=== PATIENT | male | born 1955 | race Caucasian/White ===

== ENCOUNTER → 2016-07-12 | Outpatient (CLI) | payer OTHER ==
[~2016-07-12] MED LIST: ACET-1138 PO; ASPI1CHW12 PO; CHOL100010 PO; JUICE PLUS PO; LPT40 PO; MAGN400T6 PO; MULT-506 PO; NTRS PO; OMEG10007 PO; OXYSR10 PO; POTA99TA PO; RXC5 PO; VITACAP26 PO; [UNRECOGNIZED DRUG - CODE] PO
[2016-07-12 10:24] LABS: BASO ABS # 0.06 K/uL (0-0.2); COMPLETE YES; EOS % 1.9 %; HEMATOCRIT 43.6 % (42-52); IG% 0.2 %; LYMPH % 34.2 %; LYMPH ABS # 2.12 K/uL (1.2-3.4); MEAN CELL VOLUME 82.9 fL (80-100); MEAN CORPUSCULAR HEMOGLOBIN 27.8 pg (25-34); MEAN CORPUSCULAR HGB CONC 33.5 g/dl (32-36); NEUT % 56.7 %; PLATELET COUNT 263 K/uL (130-400); RED BLOOD COUNT 5.26 M/uL (4.7-6.1)
[2016-07-12 10:35] LABS: ALT/SGPT 15 U/L (12-78); AST/SGOT 16 U/L (15-37); BLOOD UREA NITROGEN 29 mg/dl (7-18); BUN/CREATININE RATIO 23.9 (10-20); CALCIUM 9.2 mg/dl (8.5-10.1); CARBON DIOXIDE 25 mmol/L (21-32); CHLORIDE 105 mmol/L (98-107); CHOLESTEROL 147 mg/dl (0-200); GLUCOSE 94 mg/dl (70-99); POTASSIUM 4.4 mmol/L (3.5-5.1); SODIUM 138 mmol/L (136-145)
[2016-07-12 10:38] LABS: CHOLESTEROL/HDL RATIO 2.7; HDL CHOLESTEROL 54 mg/dl; LDL CHOLESTEROL CALCULATED 76 mg/dl; TRIGLYCERIDES 84 mg/dl (0-150); VERY LOW DENSITY LIPOPROT CALC 17 mg/dl
== END | disposition home or self-care (01) ==
LOC: C.LAB 09:23
DX: D64.9 Anemia, unspecified (principal); E78.5 Hyperlipidemia, unspecified

== ENCOUNTER → 2016-08-31 | Outpatient (CLI) | payer OTHER | END | disposition home or self-care (01) | LOC: C.LABSPEC 11:00 | DX: J02.9 Acute pharyngitis, unspecified (principal) ==

== ENCOUNTER 2016-10-16 11:21 | Emergency (ER) | payer OTHER ==
[~2016-10-16] VITALS: Ht 170.2 cm; Wt 90.6 kg
[~2016-10-16 11:21] MED LIST changes: -NTRS PO
[2016-10-16 11:23] VITALS: TEMP 36.7; Ht 170.2 cm; Wt 90.6 kg
[2016-10-16 11:38] VITALS: O2SAT 96
[2016-10-16] MEDS ORDERED: LIDOCAINE/EPINEPHRINE 1% 20 ML VIAL INFIL ONE (11:45)
[2016-10-16] MEDS ORDERED: DIPHTHERIA/TETANUS/PERTUSSIS 0.5 ML SYR/VIAL IM. ONE (11:45)
[2016-10-16] MEDS ORDERED: NTRS PO (11:57)
--- NOTE | 2016-10-16 12:05 | DIAGNOSTIC IMAGING REPORT ---
SINGLE VIEW CHEST CLINICAL HISTORY: Fall. FINDINGS: An AP, portable, upright chest radiograph is compared to study dated 10/17/2015. The examination is degraded by portable technique and patient rotation. The heart is enlarged. The pulmonary vasculature is noncongested. The lungs and pleural spaces are clear. No pneumothorax is seen. The bony thorax is grossly intact. Bilateral shoulder arthroplasties are in place. IMPRESSION: Cardiomegaly with no active disease in the chest. Electronically signed by: Kai Epperson M.D. 10/16/2016 12:04 PM Dictated Date/Time: 10/16/2016 12:03 PM
[2016-10-16 12:15] LABS: BASO % 1.2 %; BASO ABS # 0.08 K/uL (0-0.2); COMPLETE YES; EOS % 5.4 %; HEMATOCRIT 43.1 % (42-52); IG% 0.6 %; LYMPH % 24.3 %; LYMPH ABS # 1.61 K/uL (1.2-3.4); MEAN CORPUSCULAR HEMOGLOBIN 28.4 pg (25-34); MEAN CORPUSCULAR HGB CONC 33.4 g/dl (32-36); MEAN PLATELET VOLUME 9.3 fL (7.4-10.4); MONO % 9.5 %; PLATELET COUNT 255 K/uL (130-400); RED BLOOD COUNT 5.07 M/uL (4.7-6.1); WHITE BLOOD COUNT 6.63 K/uL (4.8-10.8)
[2016-10-16 12:25] LABS: PARTIAL THROMBOPLASTIN RATIO 1.1; PROTHROMBIN TIME (PATIENT) 10.7 SECONDS (9.0-12.0)
[2016-10-16 12:32] LABS: ALT/SGPT 18 U/L (12-78); BLOOD UREA NITROGEN 22 mg/dl (7-18); BUN/CREATININE RATIO 16.7 (10-20); CALCIUM 9.3 mg/dl (8.5-10.1); CARBON DIOXIDE 26 mmol/L (21-32); CHLORIDE 108 mmol/L (98-107); GLUCOSE 80 mg/dl (70-99); POTASSIUM 4.2 mmol/L (3.5-5.1); SODIUM 140 mmol/L (136-145)
[2016-10-16 12:37] LABS: ALKALINE PHOSPHATASE 60 U/L (45-117); AST/SGOT 23 U/L (15-37)
--- NOTE | 2016-10-16 12:42 | DIAGNOSTIC IMAGING REPORT ---
CT SCAN OF THE CERVICAL SPINE CLINICAL HISTORY: Trauma. Fall from ladder. COMPARISON STUDY: No priors. TECHNIQUE: CT scan of the cervical spine is performed from the skull base to the upper thoracic spine. Images are reviewed in the axial, sagittal, and coronal planes. IV contrast was not administered for this examination. CT DOSE: 1214.88 mGy.cm FINDINGS: Skeletal structures: The skeletal structures are well mineralized. There is no evidence of fracture or subluxation involving the cervical spine. Vertebral body height and alignment are maintained. The odontoid process and lateral masses are intact. The atlantoaxial articulation is preserved noting productive degenerative change. The spinous processes appear intact. Small anterior osteophytes are seen in the mid to lower cervical spine. There is mild multilevel cervical spondylosis. Uncovertebral and facet arthropathy are seen at several levels, greatest in lower cervical region where they contribute to neural foraminal stenosis. Intervertebral discs: Moderate disc space narrowing is seen at C5-C6 and C6-C7. The remaining disc spaces appear maintained. Central canal: Small posterior disc osteophyte complexes at C5-C6 and C6-C7 may contribute to mild acquired compromise of the central canal. Soft tissues: The prevertebral and paraspinous soft tissues are within normal limits. Calvarium: The visualized calvarium at the skull base appears intact. Brain parenchyma: Partially visualized brain parenchyma the skull base is within normal limits. Sinuses and mastoids: The visualized paranasal sinuses are clear. The mastoid air cells are well pneumatized. Lung apices: Clear as visualized. IMPRESSION: There is no evidence of fracture or subluxation involving the cervical spine. Electronically signed by: Kai Epperson M.D. 10/16/2016 12:40 PM Dictated Date/Time: 10/16/2016 12:36 PM
--- NOTE | 2016-10-16 12:45 | DIAGNOSTIC IMAGING REPORT ---
CT SCAN OF THE BRAIN WITHOUT IV CONTRAST CLINICAL HISTORY: Trauma. Fall from ladder. COMPARISON STUDY: CT of the brain dated 10/17/2015. TECHNIQUE: Unenhanced axial CT scan of the brain is performed from the vertex to the skull base. Automated dose control exposure was utilized. CT DOSE: Reported separately under the concurrently performed CT scan of the cervical spine. FINDINGS: Brain parenchyma: The brain parenchyma is normal in appearance. There is no hemorrhage, mass effect, or evidence of acute territorial ischemia by CT criteria. Yousif-white matter is preserved. No extra-axial fluid collection is seen. Ventricles, sulci, cisterns: Normal in configuration. Intracranial vasculature: There is mild atherosclerotic calcification of the cavernous carotid and vertebral arteries. Calvarium: There is no depressed calvarial fracture. Sinuses and mastoids: A small retention cyst is partially visualized in the right maxillary antrum. The remaining visualized paranasal sinuses are clear. The mastoid air cells are well pneumatized. Orbits: The bony orbits are grossly intact. IMPRESSION: No acute intracranial abnormality. Electronically signed by: Kai Epperson M.D. 10/16/2016 12:44 PM Dictated Date/Time: 10/16/2016 12:41 PM
--- NOTE | 2016-10-16 13:07 | EMERGENCY ROOM VISIT NOTE ---
History Report prepared by Fei: Nathalie Hernandez Under the Supervision of: Dr. Omid Martin D.O. First contact with patient: 11:32 Chief Complaint: FALL Stated Complaint: FELL OFF LADDER,HIT HEAD, NO SHORT TERM MEMORY History of Present Illness The patient is a 61 year old male who presents to the Emergency Room with complaints of a fall 30 minutes ago. The patient was on a 6 foot step ladder trimming trees. The fall was witnessed by his . He backwards onto soft ground. He did not seem to hit his head hard. He was holding a saw which cut his lip. 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 She is concerned because he was using the ladder in an unsafe manner which is very unusual for him. He seemed confused and was not making sense after the fall. He seemed to have some memory issues and took some time to recall who the current president is. He has some neck pain and ringing in his head. He denies any headache, chest pain, abdominal pain , arm pain, or back pain. He is able to ambulate. His teeth are lining up. He denies any alcohol use. He is unsure of his tetanus status. Source of History: patient, spouse/significant other Onset: 30 minutes ago Position: other (global) Quality: other (fall) Timing: other (episodic) Associated Symptoms: + neck pain, No headache, No chest pain, No abdominal pain, No back pain Note: Pt had confusion, memory problem, head ringing. Pt denies arm pain. Review of Systems See HPI for pertinent positives & negatives. A total of 10 systems reviewed and were otherwise negative. Past Medical & Surgical Medical Problems: (1) DJD of shoulder Surgical Problems: (1) History of mitral valve repair Family History Cancer Heart disease Social History Smoking Status: Former Smoker Alcohol Use: none Drug Use: none Marital Status: Housing Status: lives with family Occupation Status: retired Current/Historical Medications Scheduled Aspirin (Aspirin 81 Low Dose), 1 TAB PO QAM Atorvastatin (Atorvastatin Calcium), 1 TAB PO HS Cholecalciferol (Vitamin D), 2,000 PO QAM Coenzyme Q10 (Ubidecarenone) (Co-Enzyme Q-10), 200 MG PO QAM Enteral Nutrition Formula (Nutritional Supplement), 6 CAP PO DAILY Fish Oil ([place]-3), 1 CAP PO QAM Magnesium Oxide (Mag-Ox), 400 MG PO QAM Multivitamin (Multivitamin), 1 TAB PO QAM Potassium (Potassium), 2 TAB PO QAM Vitamins C & E (Vitamin C), 1 CAP PO QAM Allergies Coded Allergies: No Known Allergies (Unverified , 10/16/16) Physical Exam Vital Signs Date Time Temp Pulse Resp B/P (MAP) Pulse Ox O2 Delivery O2 Flow Rate FiO2 10/16/16 14:52 67 18 103/68 97 Room Air 10/16/16 13:15 66 16 116/77 97 10/16/16 11:38 96 Room Air 10/16/16 11:23 36.7 85 16 124/79 96 Room Air Physical Exam GENERAL: Patient is awake, alert, somewhat anxious but comfortable appearing. EYES: The conjunctivae are clear. The pupils are round and reactive. EARS, NOSE, MOUTH AND THROAT: The nose is without any evidence of any deformity. Mucous membranes are moist tongue is midline. Regular laceration to the chin which did not appear to be through and through. NECK: Cervical collar placed on arrival, no tenderness noted on palpation. RESPIRATORY: Normal respiratory effort is noted there is no evidence of wheezing rhonchi or rales CARDIOVASCULAR: Regular rate and rhythm noted there no murmurs rubs or gallops normal S1 normal S2 GASTROINTESTINAL: The abdomen is soft. Bowel sounds are present in all quadrants. Abdomen is nontender BACK: No midline tenderness or or step-off noted range of motion in flexion extension as well as rotation no signs of muscle spasm noted MUSCULOSKELETAL/EXTREMITIES: There is no evidence of gross deformity full range of motion is noted in the hips and shoulders SKIN: There is no obvious evidence of any rash. There are no petechiae, pallor or cyanosis noted. NEUROLOGIC: Patient is awake alert and oriented x3 strength is symmetric patellar reflexes are 2+ bilaterally Medical Decision & Procedures ER Provider Diagnostic Interpretation: X-ray results as stated below per interpretation by me and the radiologist. Radiology results as stated below per my review and radiologist interpretation: SINGLE VIEW CHEST CLINICAL HISTORY: Fall. FINDINGS: An AP, portable, upright chest radiograph is compared to study dated 10/17/2015. The examination is degraded by portable technique and patient rotation. The heart is enlarged. The pulmonary vasculature is noncongested. The lungs and pleural spaces are clear. No pneumothorax is seen. The bony thorax is grossly intact. Bilateral shoulder arthroplasties are in place. IMPRESSION: Cardiomegaly with no active disease in the chest. Electronically signed by: Kai Epperson M.D. 10/16/2016 12:04 PM Dictated Date/Time: 10/16/2016 12:[address] SCAN OF THE CERVICAL SPINE CLINICAL HISTORY: Trauma. Fall from ladder. COMPARISON STUDY: No priors. TECHNIQUE: CT scan of the cervical spine is performed from the skull base to the upper thoracic spine. Images are reviewed in the axial, sagittal, and coronal planes. IV contrast was not administered for this examination. CT DOSE: 1214.88 mGy.cm FINDINGS: Skeletal structures: The skeletal structures are well mineralized. There is no evidence of fracture or subluxation involving the cervical spine. Vertebral body height and alignment are maintained. The odontoid process and lateral masses are intact. The atlantoaxial articulation is preserved noting productive degenerative change. The spinous processes appear intact. Small anterior osteophytes are seen in the mid to lower cervical spine. There is mild multilevel cervical spondylosis. Uncovertebral and facet arthropathy are seen at several levels, greatest in lower cervical region where they contribute to neural foraminal stenosis. Intervertebral discs: Moderate disc space narrowing is seen at C5-C6 and C6-C7. The remaining disc spaces appear maintained. Central canal: Small posterior disc osteophyte complexes at C5-C6 and C6-C7 may contribute to mild acquired compromise of the central canal. Soft tissues: The prevertebral and paraspinous soft tissues are within normal limits. Calvarium: The visualized calvarium at the skull base appears intact. Brain parenchyma: Partially visualized brain parenchyma the skull base is within normal limits. Sinuses and mastoids: The visualized paranasal sinuses are clear. The mastoid air cells are well pneumatized. Lung apices: Clear as visualized. IMPRESSION: There is no evidence of fracture or subluxation involving the cervical spine. Electronically signed by: Kai Epperson M.D. 10/16/2016 12:40 PM Dictated Date/Time: 10/16/2016 12:[address] SCAN OF THE BRAIN WITHOUT IV CONTRAST CLINICAL HISTORY: Trauma. Fall from ladder. COMPARISON STUDY: CT of the brain dated 10/17/2015. TECHNIQUE: Unenhanced axial CT scan of the brain is performed from the vertex to the skull base. Automated dose control exposure was utilized. CT DOSE: Reported separately under the concurrently performed CT scan of the cervical spine. FINDINGS: Brain parenchyma: The brain parenchyma is normal in appearance. There is no hemorrhage, mass effect, or evidence of acute territorial ischemia by CT criteria. Yousif-white matter is preserved. No extra-axial fluid collection is seen. Ventricles, sulci, cisterns: Normal in configuration. Intracranial vasculature: There is mild atherosclerotic calcification of the cavernous carotid and vertebral arteries. Calvarium: There is no depressed calvarial fracture. Sinuses and mastoids: A small retention cyst is partially visualized in the right maxillary antrum. The remaining visualized paranasal sinuses are clear. The mastoid air cells are well pneumatized. Orbits: The bony orbits are grossly intact. IMPRESSION: No acute intracranial abnormality. Electronically signed by: Kai Epperson M.D. 10/16/2016 12:44 PM Dictated Date/Time: 10/16/2016 12:41 PM Laboratory Results 10/16/16 11:55 Red Blood Count 5.07, Mean Corpuscular Volume 85.0, Mean Corpuscular Hemoglobin 28.4, Mean Corpuscular Hemoglobin Concent 33.4, Mean Platelet Volume 9.3, Neutrophils (%) (Auto) 59.0, Lymphocytes (%) (Auto) 24.3, Monocytes (%) (Auto) 9.5, Eosinophils (%) (Auto) 5.4, Basophils (%) (Auto) 1.2, Neutrophils # (Auto) 3.91, Lymphocytes # (Auto) 1.61, Monocytes # (Auto) 0.63, Eosinophils # (Auto) 0.36, Basophils # (Auto) 0.08 10/16/16 11:55 Test 10/16/16 11:55 10/16/16 13:15 White Blood Count 6.63 K/uL (4.8-10.8) Red Blood Count 5.07 M/uL (4.7-6.1) Hemoglobin 14.4 g/dL (14.0-18.0) Hematocrit 43.1 % (42-52) Mean Corpuscular Volume 85.0 fL (80-100) Mean Corpuscular Hemoglobin 28.4 pg (25-34) Mean Corpuscular Hemoglobin Concent 33.4 g/dl (32-36) Platelet Count 255 K/uL (130-400) Mean Platelet Volume 9.3 fL (7.4-10.4) Neutrophils (%) (Auto) 59.0 % Lymphocytes (%) (Auto) 24.3 % Monocytes (%) (Auto) 9.5 % Eosinophils (%) (Auto) 5.4 % Basophils (%) (Auto) 1.2 % Neutrophils # (Auto) 3.91 K/uL (1.4-6.5) Lymphocytes # (Auto) 1.61 K/uL (1.2-3.4) Monocytes # (Auto) 0.63 K/uL (0.11-0.59) Eosinophils # (Auto) 0.36 K/uL (0-0.5) Basophils # (Auto) 0.08 K/uL (0-0.2) RDW Standard Deviation 45.3 fL (36.4-46.3) RDW Coefficient of Variation 14.5 % (11.5-14.5) Immature Granulocyte % (Auto) 0.6 % Immature Granulocyte # (Auto) 0.04 K/uL (0.00-0.02) Prothrombin Time 10.7 SECONDS (9.0-12.0) Prothromb Time International Ratio 1.0 (0.9-1.1) Activated Partial Thromboplast Time 29.5 SECONDS (21.0-31.0) Partial Thromboplastin Ratio 1.1 Anion Gap 6.0 mmol/L (3-11) Est Creatinine Clear Calc Drug Dose 64.1 ml/min Estimated GFR () 68.3 Estimated GFR (Non- 58.9 BUN/Creatinine Ratio 16.7 (10-20) Calcium Level 9.3 mg/dl (8.5-10.1) Total Bilirubin 0.7 mg/dl (0.2-1) Direct Bilirubin 0.2 mg/dl (0-0.2) Aspartate Amino Transf (AST/SGOT) 23 U/L (15-37) Alanine Aminotransferase (ALT/SGPT) 18 U/L (12-78) Alkaline Phosphatase 60 U/L (45-117) Troponin I < 0.015 ng/ml (0-0.045) Total Protein 7.4 gm/dl (6.4-8.2) Albumin 4.0 gm/dl (3.4-5.0) Lipase 172 U/L (73-393) Urine Color YELLOW Urine Appearance CLEAR (CLEAR) Urine pH 6.0 (4.5-7.5) Urine Specific [place] 1.022 (1.000-1.030) Urine Protein NEG (NEG) Urine Glucose (UA) NEG (NEG) Urine Ketones NEG (NEG) Urine Occult Blood TRACE (NEG) Urine Nitrite NEG (NEG) Urine Bilirubin NEG (NEG) Urine Urobilinogen NEG (NEG) Urine Leukocyte Esterase NEG (NEG) Urine WBC (Auto) 1-5 /hpf (0-5) Urine RBC (Auto) 0-4 /hpf (0-4) Urine Hyaline Casts (Auto) 1-5 /lpf (0-5) Urine Epithelial Cells (Auto) 5-10 /lpf (0-5) Urine Bacteria (Auto) NEG (NEG) Laboratory results per my review. Medications Administered Medications (Trade) Dose Ordered Sig/Jaun Route Start Time Stop Time Status Last Admin Dose Admin Diphtheria/ Pertussis/Tetanus Vacc (Adacel Inj) 0.5 ml ONCE ONCE IM. 10/16/16 11:45 10/16/16 11:46 DC 10/16/16 12:54 0.5 ML ECG Indication: other (fall) Rate (beats per minute): 81 Rhythm: normal sinus Findings: no ectopy, other (no acute ST segment abnormality) Comparison ECG Date: 17-Oct-2015 Change: no significant change ED Course 1133: The patient was evaluated in room B9. A complete history and physical examination were performed. 1145: Lidocaine/Epinephrine 20 ml INFIL, Adacel Inj 0.5 ml IM. 1310: Upon reevaluation, the patient is feeling better. I discussed the results and treatment plan with him and his . They verbalized agreement of the treatment plan. He was discharged home. Medical Decision Prior records/ancillary studies reviewed. Triage Nursing notes reviewed. Additional history obtained from family. The patient's history was concerning for traumatic injury Differential diagnosis: Etiologies such as fracture, dislocation, intra-abdominal, pneumothorax, intrathoracic , intracranial, neurologic, as well as other traumatic pathologies were entertained. Medication Reconciliation: I attest that I have personally reviewed the patient' s current medications list. Blood pressure screening: Patient was found to have normal blood pressure on screening and does not require follow-up. The patient is a 61-year-old male who presented to the emergency department for an evaluation after fall. The patient presented to the emergency department with his significant other who states that he had very significant fall and appears to be amnestic of the event. On my evaluation the patient appears to have a significant concussion clinically. He had no meningismus or focal neurologic deficits. He does complain of headache but it is very mild and he does not wish to have any medication for pain. The patient was treated with tetanus shot. He had a large laceration lower chin which was repaired by both or PAC. Please see her note for procedure details. I discussed the patient's laboratory and radiographic studies with him. He was given concussion discharge instructions as well as laceration discharge instructions. He was encouraged to follow-up with his family doctor this week for reevaluation. He was also encouraged to follow-up for suture removal in 5-7 days. Return to emergency department immediately if symptoms change worsen or the need arises. Impression Primary Impression: Fall Additional Impressions: Concussion Head injury Facial laceration Cervical strain Scribe Attestation The scribe's documentation has been prepared under my direction and personally reviewed by me in its entirety. I confirm that the note above accurately reflects all work, treatment, procedures, and medical decision making performed by me. Departure Information Dispostion Home / Self-Care Referrals Beto Chavez Jr,D.O. (PCP) Forms HOME CARE DOCUMENTATION FORM, IMPORTANT VISIT INFORMATION Patient Instructions Concussion, ED Laceration Facial Skin Glue, [facility] Additional Instructions Call your family to schedule a follow-up appointment. Rest and avoid any strenuous activity. Return to the emergency apartment immediately if any signs of head injury develop such as severe headache seizure or if the need arises. Have the sutures removed in 5-6 days with your family doctor. Problem Qualifiers Primary Impression: Fall Encounter type: initial encounter Qualified Codes: W19.XXXA - Unspecified fall, initial encounter Additional Impressions: Concussion Encounter type: initial encounter Loss of consciousness presence/duration: without LOC Qualified Codes: S06.0X0A - Concussion without loss of consciousness, initial encounter Head injury Encounter type: initial encounter Qualified Codes: S09.90XA - Unspecified injury of head, initial encounter Facial laceration Encounter type: initial encounter Qualified Codes: S01.81XA - Laceration without foreign body of other part of head, initial encounter Cervical strain Encounter type: initial encounter Qualified Codes: S16.1XXA - Strain of muscle, fascia and tendon at neck level, initial encounter
[2016-10-16 13:36] LABS: URINE APPEARANCE CLEAR (CLEAR); URINE BILIRUBIN NEG (NEG); URINE COLOR YELLOW; URINE NITRITE NEG (NEG); URINE SPECIFIC GRAVITY 1.022 (1.000-1.030); UROBILINOGEN NEG (NEG)
[2016-10-16 13:41] LABS: MANUAL MICROSCOPIC REQUIRED? NO; REVIEW REQ? NO
--- NOTE | 2016-10-16 13:49 | EMERGENCY ROOM VISIT NOTE ---
ED Visit Note I was asked by Dr. Martin to perform a laceration repair to the patient's face. The laceration is approximately 5 cm in length. Using sterile technique the wound was cleaned with Betadine. The area was sterilely draped. 4 ml of 1% buffered lidocaine with epinephrine was used to anesthetize the skin. Once the patient was numb, the wound was copiously irrigated under pressure with sterile saline. The wound was explored and there were no deep structures such as tendons, bone, or ligaments present. The laceration was repaired using 8 simple interrupted 8-0 nylon sutures with the wound edges being well approximated. The patient tolerated the procedure well. The bleeding stopped.
[2016-10-16 14:52] VITALS: BP 103/68; PULSE 67; O2SAT 97
== END 2016-10-16 14:56 | disposition home or self-care (01) ==
LOC: C.EDB 11:22
DX: S06.0X0A Concussion without loss of consciousness, initial encounter (principal); W11.XXXA Fall on and from ladder, initial encounter; S09.90XA Unspecified injury of head, initial encounter; S01.81XA Laceration without foreign body of other part of head, initial encounter; S16.1XXA Strain of muscle, fascia and tendon at neck level, initial encounter; Z82.49 Family history of ischemic heart disease and other diseases of the circulatory system; Z87.891 Personal history of nicotine dependence; Z79.82 Long term (current) use of aspirin; Z23 Encounter for immunization

== ENCOUNTER 2016-10-21 12:12 | Emergency (ER) | payer OTHER ==
[~2016-10-21] VITALS: Ht 170.2 cm; Wt 91.9 kg
[~2016-10-21 12:12] MED LIST changes: -ACET-1138 PO; -JUICE PLUS PO; +NTRS PO; -OXYSR10 PO; -RXC5 PO
[2016-10-21 12:19] VITALS: BP 114/77; PULSE 71; TEMP 36.9; O2SAT 98; Ht 170.2 cm; Wt 91.9 kg
--- NOTE | 2016-10-21 16:56 | EMERGENCY ROOM VISIT NOTE ---
ED Visit Note First contact with patient: 12:29 CHIEF COMPLAINT: Suture removal This patient returns to the ED today for removal of sutures that were placed 5 days ago. There has been no swelling, redness, or drainage from the wound. The patient feels like the laceration is healing well. REVIEW OF SYSTEMS: Head: No headache, injury or neck pain. Skin: No rash, new lesions, or masses. General: No fever or chills, fatigue, loss of appetite , or significant recent weight gain or loss. PMH: Reviewed and unchanged from prior visit. SOCIAL HISTORY: Patient lives at home. PHYSICAL EXAM: Vital Signs: Reviewed Nurse's notes. There is a sutured wound on the chin with no signs of infection. There is no erythema, swelling, or tenderness. EMERGENCY DEPARTMENT COURSE: The sutures were removed without any difficulty and there was no separation of the wound edges. DIAGNOSIS: Healing laceration and suture removal DISCHARGE INSTRUCTIONS AND TREATMENT: Wash any remaining crusts off of the wound today and resume your normal activities. Current/Historical Medications Scheduled Aspirin (Aspirin 81 Low Dose), 1 TAB PO QAM Atorvastatin (Atorvastatin Calcium), 1 TAB PO HS Cholecalciferol (Vitamin D), 2,000 PO QAM Coenzyme Q10 (Ubidecarenone) (Co-Enzyme Q-10), 200 MG PO QAM Enteral Nutrition Formula (Nutritional Supplement), 6 CAP PO DAILY Fish Oil ([place]-3), 1 CAP PO QAM Magnesium Oxide (Mag-Ox), 400 MG PO QAM Multivitamin (Multivitamin), 1 TAB PO QAM Potassium (Potassium), 2 TAB PO QAM Vitamins C & E (Vitamin C), 1 CAP PO QAM Allergies Coded Allergies: No Known Allergies (Unverified , 10/21/16) Vital Signs Date Time Temp Pulse Resp B/P (MAP) Pulse Ox O2 Delivery O2 Flow Rate FiO2 10/21/16 12:19 36.9 71 16 114/77 98 Room Air Departure Information Impression Primary Impression: Encounter for removal of sutures Dispostion Home / Self-Care Condition GOOD Referrals Beto Chavez Jr,D.O. (PCP) Forms HOME CARE DOCUMENTATION FORM, IMPORTANT VISIT INFORMATION Patient Instructions [facility]
== END 2016-10-21 12:52 | disposition home or self-care (01) ==
LOC: C.EDB 12:15 → C.EDD 12:52
DX: S01.81XD Laceration without foreign body of other part of head, subsequent encounter (principal); X58.XXXD Exposure to other specified factors, subsequent encounter; Z79.82 Long term (current) use of aspirin; Z79.899 Other long term (current) drug therapy

== ENCOUNTER → 2017-01-14 | Outpatient (CLI) | payer OTHER ==
[2017-01-14 12:49] LABS: ALT/SGPT 19 U/L (12-78); AST/SGOT 19 U/L (15-37)
== END | disposition home or self-care (01) ==
LOC: C.LAB 10:40
DX: E78.5 Hyperlipidemia, unspecified (principal)

== ENCOUNTER → 2017-02-27 | Outpatient (CLI) | payer OTHER ==
[2017-02-27 12:48] LABS: FERRITIN 57.1 ng/ml (8.0-388.0)
== END | disposition home or self-care (01) ==
LOC: C.LAB 10:33
DX: E61.1 Iron deficiency (principal); M19.90 Unspecified osteoarthritis, unspecified site; I42.9 Cardiomyopathy, unspecified

== ENCOUNTER 2017-03-21 05:18 | Inpatient (IN) | payer OTHER ==
--- NOTE | 2017-02-27 08:45 | History and Physical ---
History & Physical Date Feb 27, 2017. Chief Complaint Right Knee Pain History of Present Illness 1. right knee pain Mr Tovar is a 61 year old male who is here for a follow up of right knee pain and pre op evaluation prior to right TKA. He presents with pain on the right side. He states that the symptoms have been chronic non-traumatic. Patient is here today requesting a right knee cortisone injection. The symptoms occur intermittently. The problem is fluctuating. Currently the patient states that the symptoms are moderate-severe. The pain is described as aching, discomforting and throbbing. The symptoms occur intermittently. The symptoms are aggravated by ascending stairs, descending stairs, daily activities, driving , first steps while awake, kneeling, movement, repetitive activities, sleeping on the affected side, squatting and walking. Davey states that the symptoms are relieved by no specific activity. In addition to right knee pain the patient is also experiencing decreased mobility, difficulty bending, difficulty going to sleep, limping, nighttime awakening, pain, stiffness, tenderness and weakness. Pertinent negatives include chills and fever. The patient has had a previous x-ray and MRI. He has been treated with a corticosteroid injection on the right side. Patient has had previous therapy. He attended physical therapy. Past Medical/Surgical History Medical Problems: (1) DJD of shoulder High Cholesterol Surgical Problems: History of mitral valve repair @ [facility] history of right TSA history of Left TSA history of left TKA Allergies Coded Allergies: No Known Allergies (Unverified , 10/21/16) Home Medications Scheduled Aspirin (Aspirin 81 Low Dose), 1 TAB PO QAM Atorvastatin (Atorvastatin Calcium), 1 TAB PO HS Cholecalciferol (Vitamin D), 2,000 PO QAM Coenzyme Q10 (Ubidecarenone) (Co-Enzyme Q-10), 200 MG PO QAM Enteral Nutrition Formula (Nutritional Supplement), 6 CAP PO DAILY Fish Oil ([place]-3), 1 CAP PO QAM Magnesium Oxide (Mag-Ox), 400 MG PO QAM Multivitamin (Multivitamin), 1 TAB PO QAM Potassium (Potassium), 2 TAB PO QAM Vitamins C & E (Vitamin C), 1 CAP PO QAM Physical Examination Skin: warm/dry, no rash Eyes: normal inspection, EOMI, sclerae normal ENT: normal ENT inspection, pharynx normal Head: normocephalic, atraumatic Neck: supple, no adenopathy, trachea midline Respiratory/Chest: lungs clear, normal breath sounds, no respiratory distress Cardiovascular: regular rate, rhythm, no edema, no murmur Abdomen / GI: normal bowel sounds, non tender Back: normal inspection Addiitonal Comments: Right Knee Physical Exam Exam Findings Details Knee ROM L * Active ROM - Flexion: 135 degrees, Extension: 0 degrees, Factors: normal, Description: active pain free range of motion. Passive ROM - Flexion: 135 degrees, Extension: 0 degrees, Factors: normal, Description: passive pain free range of motion. Knee ROM R * Active ROM - Flexion: 120 degrees, Extension: 3 degrees, Factors: pain, Description: active painful range of motion. Passive ROM - Flexion: 120 degrees, Extension: 3 degrees, Factors: pain, Description: passive painful range of motion. Strength LE Normal Strength Description - Hip: Right: strength is normal. Knee: Right: strength is normal. Ankle/Foot: Right: strength is normal. Knee * Inspection - Gait: limp. Alignment - Right: varus, Left: neutral. Ecchymosis - Right: negative, Left: negative. Effusion - Right: mild, Left: normal. Swelling - Right: mild, Left: none. Flexibility - Right: normal, Left: normal. Maximum tenderness - Right: medial joint line, lateral joint line, patella, Left: normal. Patella exam - Crepitation - Right: mild, Left: normal. Patella position - Right: neutral, Left: neutral. Tilt - Right: equal, Left: normal. [facility] - lateral - Right: Positive. Travis's - medial - Right: Positive. Knee Comments No calf tenderness Knee Normal Inspection - Atrophy - Right: Absent, Left: Absent. Skin - Right: Normal, Left: Normal. Patella exam - Apprehension - Right: Negative, Left: Negative. Q-angle - Right: Normal, Left: Normal. Orestes's - Right: Negative, Left: Negative. [facility] - lateral - Left: Negative. Travis's - medial - Left: Negative. Posterior drawer - Right: Negative, Left: Negative. Anterior drawer - Right: Negative, Left: Negative. Valgus stress - Right: Negative, Left : Negative. Varus stress - Right: Negative, Left: Negative. Extensor lag - Right : Normal. Neurovascular LE Normal Neurovascular examination including reflexes, sensation , and pulses is within normal limits. right knee x-rays: Xrays reviewed of the right knee showing findings consistent with degenerative joint disease including joint space narrowing, subchondral sclerosis and peripheral osteophyte formation. no acute bony pathology, overall varus alignment. Impression: degenerative joint disease of the right knee with no acute bony pathology noted. Diagnosis Right Knee DJD Further care discussed with patient and at this point in time has failed conservative measures and would like to proceed with a right total knee replacement. Plan on discharge will be home with outpatient physical therapy. DVT prophalaxis with TEDs, SCDs and will also place on aspirin 81 mg p.o. b.i.d. for a month postop. Patient will have follow up appointment in our office two weeks post op for staple/suture removal and re-evaluation. Patient otherwise has no other questions or concerns.
[2017-02-27 10:36] VITALS: Ht 170.2 cm; Wt 94.2 kg
--- NOTE | 2017-02-27 11:12 | PAT Medication Instructions ---
Service Date Feb 27, 2017. Current Home Medication List Aspirin (Aspirin 81 Low Dose), 1 TAB PO QAM Atorvastatin (Atorvastatin Calcium), 1 TAB PO HS Cholecalciferol (Vitamin D), 2,000 PO QAM Coenzyme Q10 (Ubidecarenone) (Co-Enzyme Q-10), 200 MG PO QAM Enteral Nutrition Formula (Nutritional Supplement), 6 CAP PO DAILY Fish Oil ([place]-3), 1 CAP PO QAM Magnesium Oxide (Mag-Ox), 400 MG PO QAM Multivitamin (Multivitamin), 1 TAB PO QAM Potassium (Potassium), 2 TAB PO QAM Medication Instructions For Your Scheduled Surgery - Hold the following medications 2 weeks prior to surgery: Fish Oil ([place]-3), 1 CAP PO QAM Coenzyme Q10 (Ubidecarenone) (Co-Enzyme Q-10), 200 MG PO QAM - Hold the following medications the morning of surgery: Magnesium Oxide (Mag-Ox), 400 MG PO QAM Multivitamin (Multivitamin), 1 TAB PO QAM Potassium (Potassium), 2 TAB PO QAM Enteral Nutrition Formula (Nutritional Supplement), 6 CAP PO DAILY Cholecalciferol (Vitamin D), 2,000 PO QAM - Take the following medications the morning of surgery with a sip of water: Aspirin (Aspirin 81 Low Dose), 1 TAB PO QAM - Take the following medications as scheduled the night before surgery: Atorvastatin (Atorvastatin Calcium), 1 TAB PO HS If you have any questions please call us at [phone] or [phone] or [phone]
[2017-02-27 12:17] LABS: BASO % 0.9 %; BASO ABS # 0.05 K/uL (0-0.2); COMPLETE YES; EOS % 3.2 %; IG% 0.2 %; LYMPH % 26.3 %; LYMPH ABS # 1.42 K/uL (1.2-3.4); MEAN CORPUSCULAR HEMOGLOBIN 28.4 pg (25-34); MEAN PLATELET VOLUME 9.5 fL (7.4-10.4); MONO % 9.5 %; NEUT % 59.9 %; PLATELET COUNT 227 K/uL (130-400); WHITE BLOOD COUNT 5.39 K/uL (4.8-10.8)
--- NOTE | 2017-02-27 12:26 | DIAGNOSTIC IMAGING REPORT ---
CHEST PREADMISSION(PA/LAT) HISTORY: Preop. COMPARISON: Chest 10/16/2016. FINDINGS: The lungs are clear. No pleural effusions. No pneumothorax. The heart is normal in size. Cardiac valve prosthesis is noted. Bilateral shoulder arthroplasties. IMPRESSION: No acute process. Electronically signed by: Zach Herrera M.D. 02/27/2017 12:24 PM Dictated Date/Time: 02/27/2017 12:15 PM
[2017-02-27 12:29] LABS: PARTIAL THROMBOPLASTIN RATIO 1.2; PROTHROMBIN TIME (PATIENT) 10.3 SECONDS (9.0-12.0)
[2017-02-27 12:36] LABS: URINE APPEARANCE CLEAR (CLEAR); URINE BILIRUBIN NEG (NEG); URINE COLOR YELLOW; URINE EPITHELIAL CELL AUTO 0-5 /lpf (0-5); URINE NITRITE NEG (NEG); URINE SPECIFIC GRAVITY 1.017 (1.000-1.030); UROBILINOGEN NEG (NEG); ZZUR CULT IF INDIC CLEAN CATCH NO
[2017-02-27 12:50] LABS: MANUAL MICROSCOPIC REQUIRED? NO; REVIEW REQ? NO
[2017-02-27 13:01] LABS: CALCIUM 8.8 mg/dl (8.5-10.1); CREATININE 1.05 mg/dl (0.60-1.40)
[2017-02-27 13:06] LABS: ESTIMATED AVERAGE GLUCOSE 120 mg/dl; HA1C FLAG Normal (Normal)
[~2017-03-21] VITALS: Ht 170.2 cm; Wt 94.2 kg
[2017-03-21] VITALS (9 sets, daily range): BP systolic 97–107; BP diastolic 54–76; PULSE 54–64; TEMP 36.3–36.7; O2SAT 97–100
[~2017-03-21 05:18] MED LIST changes: -VITACAP26 PO
[2017-03-21] MEDS ORDERED: LACTATED RINGER'S 1000ML 500 ML IV ONE (06:00)
[2017-03-21] MEDS ORDERED: DEXAMETHASONE 4 MG TAB PO SCH (06:00)
[2017-03-21] MEDS ORDERED: GABAPENTIN 300 MG CAP PO SCH (06:00)
[2017-03-21] MEDS ORDERED: FAMOTIDINE 20 MG TAB PO SCH (06:00)
[2017-03-21] MEDS ORDERED: LACTATED RINGER'S 1000ML 1,000 ML IV SCH (06:00)
[2017-03-21] MEDS ORDERED: ROPIVACAINE 5MG/ML 30 ML 150 MG, BUPIVACAINE 0.5% MPF INJ 30 ML, EpINEphrine HCL INJ 0.... INFIL SCH ×8 (06:00)
[2017-03-21] MEDS ORDERED: LACTATED RINGER'S 1000ML IV SCH (06:00)
[2017-03-21] MEDS ORDERED: CeleBREX 200 MG CAP PO SCH (06:00)
[2017-03-21] MEDS ORDERED: METOCLOPRAMIDE HCL 10 MG TAB PO SCH (06:00)
[2017-03-21] MEDS ORDERED: CEFAZOLIN 2000MG IV PUSH 10 ML IV SCH (06:00)
[2017-03-21] MEDS ORDERED: ACETAMINOPHEN 500 MG TAB PO SCH (06:00)
[2017-03-21] MEDS ORDERED: BUPIVACAINE 0.5 % 5 MG/1 ML PF 10ML VIAL ONE (06:26)
[2017-03-21] MEDS ORDERED: ROPIVACAINE 0.5% 5 MG/ML 30 ML VIAL ONE (06:26)
[2017-03-21] MEDS: TRANEXAMIC ACID INJ 1,000 MG in SYRINGE 0 ML IV SCH ×2 (06:30→06:44)
[2017-03-21] MEDS ORDERED: MIDAZOLAM HCL 1 MG/ML 2ML VIAL ONE (06:50)
[2017-03-21] MEDS ORDERED: FENTANYL CITRATE INJ 50 MCG/1 ML 2 ML VIAL ONE (06:51)
[2017-03-21] MEDS ORDERED: ORTHO JOINT ANESTHETIC ONE (07:06)
--- NOTE | 2017-03-21 07:06 | History & Physical Bridge Note ---
H&P Re-Evaluation Bridge Note: I have examined the patient, reviewed the History & Physical and in the interval since the performance of the History & Physical I have noted the following changes of clinical significance: No changes noted
[2017-03-21] MEDS ORDERED: BACITRACIN 50000 UNIT VIAL ONE (07:07)
[2017-03-21] MEDS ORDERED: POVIDONE-IODINE OP SOLN 30 ML BTL ONE (07:07)
[2017-03-21] MEDS ORDERED: PHENYLEPHRINE 100MCG/ML 5ML SYR IV PRN (07:45)
[2017-03-21] MEDS ORDERED: ATROPINE SULFATE 0.1 MG/ML 5ML SYR IV PRN (07:45)
[2017-03-21] MEDS ORDERED: HYDROmorphone INJ 2 MG/ML SYR/VIAL IV PRN (07:45)
[2017-03-21] MEDS ORDERED: ONDANSETRON INJ 2 MG/ML 2 ML VIAL IV PRN ×2 (07:45→09:00)
[2017-03-21] MEDS ORDERED: EpHEDrine SULFATE INJ 50 MG/ML AMP IV PRN (07:45)
--- NOTE | 2017-03-21 08:20 | [facility] Operative Report ---
Operative Report Operative Date Mar 21, 2017. Pre-Operative Diagnosis Right knee degenerative joint disease Post-Operative Diagnosis Right knee degenerative joint disease Procedure(s) Performed Right total knee arthroplasty utilizing [employer] Nephew journey to patient-matched total knee Orthoplast size 8 femur 7 tibia 11 poly-[address] Parmjit Wong Carder Blankets Surgeon(s) Gio Coleman PA-C Estimated Blood Loss 5cc Findings Patient presents after failing attempts at conservative management including physical therapy anti-inflammatories relative rest activity modification presents for a right total knee arthroplasty. Specimens A. Right knee bone and tissue Complication(s) None Disposition Recovery Room / PACU Indications Plan for right total knee arthroplasty patient's failed attempts at conservative management patient's prognosis osteophytes sclerosis and marginal osteophytes varus alignment DJD with bone the bone changes Description of Procedure After proper prepping and draping of the Right lower extremity anterior midline incision was made over the region of the extensor extensor mechanism after meticulous hemostasis was obtained and maintained in subcutaneous tissues a medial parapatellar incision was made The patella was subluxed lateralward the medial lateral gutter were cleaned from any hypertrophic synovitis and scar tissue of the distal femoral block was placed and the distal femoral osteotomy cut was made subsequently the chamfers anterior and posterior osteotomy cuts were made utilizing the 4-in-1 block the tibia was subsequently subluxed anteriorward medial and ateral meniscal remnants were excised in their entirety remnants of the anterior and posterior cruciate ligaments were excised in their entirety excellent exposure of the proximal tibia was obtained the tibial osteotomy guide was placed on the proximal tibial osteotomy cut was made once again the knee was irrigated with copious amounts of sterile saline solution the patella was subsequently everted lateralward thickened scar tissue around the patella was removed the patella was subsequently cut utilizing a freehand technique and was drilled prepared for final preparation and placement of patella socially flexion-extension gaps were checked and the equal and symmetric trials were placed to the appropriate femoral and tibial trials with poly-spacer being placed for equal flexion and extension gaps and full range of motion including extension to 0 and flexion to 140 the trial components after having been taken to recovery range of motion was subsequently removed meticulous hemostasis was obtained and maintained subsequently a knee block injection of joint cocktail including ropivacaine 0.5% 150 mg. Bupivacaine 0.5 % epinephrine 1-200,030 mL's toradol 30 mg dexamethasone 4 mg ketamine 10 mg clonidine 100 micrograms normal saline solution 30 mg was infiltrated into the soft tissues of the posterior knee medial lateral gutters and periosteal synovium special attention was paid to protect neurovascular structures at all times subsequently trial components having been removed the knee was irrigated with sterile saline solution. debris was removed the proximal tibia was subsequently prepared and was made ready for the placement of the tibial component tibial component was also cemented and tamped into position the femoral component was subsequently placed and cemented in the position the patellar component was subsequently cemented in position because hemostasis once again obtained and maintained wound having been thoroughly irrigated with debridement and debridement lavage was performed as well as a medial parapatellar incision closed with #1 Vicryl in interrupted fashion subcutaneous was closed with #2 Vicryl skin was closed with skin clips. PA-C was necessary for prepping and drapping as well as wound closure of deep fascia Sub cutaneous tissue and skin and was necessary for the case. A sterile compressive dressing was placed patient was taken to recovery in stable condition of report dictated by Marvin I attest to the content of the Intraoperative Record and any orders documented therein. Any exceptions are noted below. I attest to the content of the Intraoperative Record and any orders documented therein. Any exceptions are noted below.
[2017-03-21] MEDS ORDERED: GLYCOPYRROLATE INJ 0.2 MG/ML VIAL ONE (08:29)
[2017-03-21] MEDS ORDERED: PROPOFOL IV EMULSION 10 MG/ML 20 ML VIAL IV ONE ×2 (08:29)
[2017-03-21] MEDS ORDERED: MoRPHine SULFATE 2 MG/ML CARP IV PRN ×2 (09:00→11:15)
[2017-03-21] MEDS ORDERED: CEFAZOLIN IV 2,000 MG in DEXTROSE 5% 50ML 50 ML IV SCH (09:00)
[2017-03-21] MEDS ORDERED: NON-FORMULARY MEDICATION (Potassium 2 TAB) PO SCH (09:00)
[2017-03-21] MEDS ORDERED: BISACODYL 10 MG SUPP PR PRN (09:00)
[2017-03-21] MEDS ORDERED: TRAMADOL HCL 50 MG TAB PO PRN (09:00)
[2017-03-21] MEDS ORDERED: MAGNESIUM HYDROXIDE SUSP 30 ML UDC PO PRN (09:00)
[2017-03-21] MEDS ORDERED: ZOLPIDEM TARTRATE 5 MG TAB PO PRN (09:00)
[2017-03-21] MEDS ORDERED: ALUMINUM/MAGNESIUM/SIMETH (MAALOX MAX) 30 ML UDC PO PRN (09:00)
[2017-03-21] MEDS ORDERED: SOD PHOSPHATE/SOD BIPHOSPHATE ENEMA 132 ML BTL PR PRN (09:00)
[2017-03-21] MEDS ORDERED: KETOROLAC TROMETHAMINE 30 MG/ML VIAL IV. PRN (09:00)
[2017-03-21] MEDS ORDERED: ENTERAL NUTRITION FORMULA PO SCH (09:00)
--- NOTE | 2017-03-21 09:43 | DIAGNOSTIC IMAGING REPORT ---
R KNEE 1 OR 2 VIEWS ROUTINE HISTORY: 61 years-old Male AP/LATERAL IN PACU RIGHT KNEE status post right knee arthroplasty. Degenerative joint disease of the right knee. COMPARISON: None available TECHNIQUE: 2 views of the right knee FINDINGS: Postoperative changes compatible with right knee total joint arthroplasty and patellar resurfacing. Alignment is satisfactory. No periprosthetic fracture or retained foreign body identified. Expected postsurgical soft tissue swelling and deep tissue air noted about the knee. Surgical drain is in place. Spurring about the tibial tuberosity incidentally noted. IMPRESSION: Status post right knee total joint arthroplasty and patellar resurfacing without complication. The above report was generated using voice recognition software. It may contain grammatical, syntax or spelling errors. Electronically signed by: Ismael Mitchell M.D. 03/21/2017 9:42 AM Dictated Date/Time: 03/21/2017 9:41 AM
--- NOTE | 2017-03-21 10:10 | Anesthesiology Progress Note ---
Anesthesia Post Op Note Date & Time Mar 21, 2017 at 10:10 Vital Signs Pain Intensity: 0 Vital Signs Past 12 Hours Date Time Temp Pulse Resp B/P (MAP) Pulse Ox O2 Delivery O2 Flow Rate FiO2 03/21/17 10:07 60 19 03/21/17 10:07 59 19 100 03/21/17 10:06 97/56 03/21/17 10:02 66 17 94/53 97 03/21/17 10:02 66 17 03/21/17 10:01 89/59 03/21/17 09:57 61 18 100 03/21/17 09:57 64 18 03/21/17 09:56 89/60 03/21/17 09:52 60 15 03/21/17 09:52 60 13 98 03/21/17 09:51 94/64 03/21/17 09:47 61 14 03/21/17 09:47 61 10 99 03/21/17 09:46 94/63 03/21/17 09:42 65 16 100 03/21/17 09:42 65 16 03/21/17 09:41 64 8 03/21/17 09:41 64 8 100/63 99 03/21/17 09:39 91/63 03/21/17 09:36 62 4 03/21/17 09:36 62 4 90/60 98 03/21/17 09:34 36.4 63 16 91/63 (67) 100 Nasal Cannula 2 03/21/17 09:31 63 8 03/21/17 09:31 64 8 92/59 99 03/21/17 09:26 63 4 03/21/17 09:26 62 4 95/63 99 03/21/17 09:25 64 13 03/21/17 09:25 64 13 99 03/21/17 09:21 93/61 03/21/17 09:20 65 14 03/21/17 09:20 65 14 100 03/21/17 09:17 93/61 03/21/17 09:16 86/53 03/21/17 09:15 66 13 03/21/17 09:15 66 13 100 03/21/17 09:11 95/61 03/21/17 09:10 73 10 03/21/17 09:10 73 10 99 03/21/17 09:06 98/62 03/21/17 09:05 75 13 12/12/17 09:05 76 13 99 03/21/17 09:02 97/56 03/21/17 09:01 87/54 03/21/17 09:00 79 20 03/21/17 09:00 79 20 99 03/21/17 08:56 103/61 03/21/17 08:55 36.2 87 14 103/61 98 Oxymask 10 03/21/17 08:55 84 94 03/21/17 08:55 84 03/21/17 06:26 36.5 62 18 106/62 97 Room Air Notes Mental Status: alert / awake / arousable, participated in evaluation Pt Amnestic to Procedure: Yes Nausea / Vomiting: adequately controlled Pain: adequately controlled Airway Patency, RR, SpO2: stable & adequate BP & HR: stable & adequate Hydration State: stable & adequate Anesthetic Complications: no major complications apparent
[2017-03-21] MEDS ORDERED: MoRPHine SULFATE 4 MG/ML 1 ML CARP\\VIAL IV PRN (11:15)
[2017-03-21] MEDS ORDERED: MoRPHine SULFATE 10 MG/ML CARP/VIAL IV PRN (11:15)
[2017-03-21] MEDS: D5W AND 1/2NSS + 20MEQ KCL 1,000 ML IV SCH ×2 (11:18→21:07)
[2017-03-21] MEDS: MULTIVITAMIN TAB PO SCH (13:40)
[2017-03-21] MEDS: MAGNESIUM OXIDE 400 MG TAB PO SCH (13:41)
[2017-03-21] MEDS: ACETAMINOPHEN 500 MG TAB PO SCH ×2 (13:41→21:07)
[2017-03-21] MEDS: DOCUSATE SODIUM 100 MG CAP PO SCH ×2 (13:41→21:06)
[2017-03-21] MEDS: CEFAZOLIN IV 2,000 MG in SYRINGE 0 ML IV SCH (15:44)
[2017-03-21] MEDS: OXYCODONE HCL IR 5 MG TAB (IMMEDIATE RELEASE) PO PRN ×2 (15:45→19:55)
[2017-03-21] MEDS: CeleBREX 200 MG CAP PO SCH (21:05)
[2017-03-21] MEDS: ASPIRIN 81 MG ECTAB PO SCH (21:06)
[2017-03-21] MEDS: ATORVASTATIN 40 MG TAB PO SCH (21:06)
[2017-03-21] MEDS: SENNA 8.6 MG TAB PO SCH (21:06)
[2017-03-22] VITALS (7 sets, daily range): BP systolic 88–120; BP diastolic 47–80; PULSE 58–62; TEMP 36.4–36.7; O2SAT 94–99
[2017-03-22] MEDS: OXYCODONE HCL IR 5 MG TAB (IMMEDIATE RELEASE) PO PRN ×6 (00:18→21:43)
[2017-03-22] MEDS: CEFAZOLIN IV 2,000 MG in SYRINGE 0 ML IV SCH (00:19)
[2017-03-22] MEDS: ACETAMINOPHEN 500 MG TAB PO SCH ×3 (05:42→22:28)
--- NOTE | 2017-03-22 06:50 | Orthopedic Progress Note ---
Orthopedic Progress Note Date of Service Mar 22, 2017. Subjective Post OP Day: 1 Reports: feeling well, pain controlled w PO medications, Denies: complaints, chest pain, SOB, nausea / vomiting, light headedness, calf pain Objective calves soft nontender, N/V intact, capillary refill less than 2 sec., dressing C /D/I, A&O x3, toes mobile, hemovac drainage (100cc/8 hours) Date Time Temp Pulse Resp B/P (MAP) Pulse Ox O2 Delivery O2 Flow Rate FiO2 03/22/17 04:15 109/70 (83) 03/22/17 03:13 36.5 58 14 88/47 (61) 94 Room Air 88/51 (63) 03/22/17 00:15 Room Air 03/21/17 23:10 36.5 63 16 101/64 (76) 98 Room Air 03/21/17 20:25 36.7 54 18 97/65 (76) 98 Room Air 03/21/17 16:00 Room Air 03/21/17 15:04 36.3 64 18 98/63 (75) 97 Room Air 03/21/17 13:23 36.3 60 19 107/76 (86) 97 Room Air 03/21/17 12:15 36.4 60 19 106/68 (81) 100 Nasal Cannula 2.0 03/21/17 11:10 36.4 56 19 97/54 (68) 100 Nasal Cannula 2.0 03/21/17 10:53 98 Nasal Cannula 2.0 03/21/17 10:45 36.4 56 17 99/62 (74) 97 Room Air 2.0 03/21/17 10:15 98 Nasal Cannula 2.0 03/21/17 10:15 36.4 57 16 97/59 (72) 98 Nasal Cannula 2.0 03/21/17 10:07 60 19 03/21/17 10:07 59 19 100 03/21/17 10:06 97/56 03/21/17 10:02 66 17 94/53 97 03/21/17 10:02 66 17 03/21/17 10:01 89/59 03/21/17 09:57 61 18 100 03/21/17 09:57 64 18 03/21/17 09:56 89/60 03/21/17 09:52 60 15 03/21/17 09:52 60 13 98 03/21/17 09:51 94/64 03/21/17 09:47 61 14 03/21/17 09:47 61 10 99 03/21/17 09:46 94/63 03/21/17 09:42 65 16 100 03/21/17 09:42 65 16 03/21/17 09:41 64 8 03/21/17 09:41 64 8 100/63 99 03/21/17 09:39 91/63 03/21/17 09:36 62 4 03/21/17 09:36 62 4 90/60 98 03/21/17 09:34 36.4 63 16 91/63 (67) 100 Nasal Cannula 2 03/21/17 09:31 63 8 03/21/17 09:31 64 8 92/59 99 03/21/17 09:26 63 4 03/21/17 09:26 62 4 95/63 99 03/21/17 09:25 64 13 03/21/17 09:25 64 13 99 03/21/17 09:21 93/61 03/21/17 09:20 65 14 03/21/17 09:20 65 14 100 03/21/17 09:17 93/61 03/21/17 09:16 86/53 03/21/17 09:15 66 13 03/21/17 09:15 66 13 100 03/21/17 09:11 95/61 03/21/17 09:10 73 10 03/21/17 09:10 73 10 99 03/21/17 09:06 98/62 03/21/17 09:05 75 13 03/21/17 09:05 76 13 99 03/21/17 09:02 97/56 03/21/17 09:01 87/54 03/21/17 09:00 79 20 03/21/17 09:00 79 20 99 03/21/17 08:56 103/61 03/21/17 08:55 36.2 87 14 103/61 98 Oxymask 10 03/21/17 08:55 84 94 03/21/17 08:55 84 Laboratory Results 24 Hours: Test 03/22/17 06:25 Assessment & Plan Assessment: POD #1 s/p Right TKA -pt/ot -dvt proph with jey/scd/asa -plan for d/c home with OPPT @ [facility] when stable Discharge Planning Discharge Planning: home with oppt DVT Prophylaxis: TEDs, SCDs
[2017-03-22 06:57] LABS: HEMATOCRIT 34.4 % (42-52); MEAN CELL VOLUME 85.6 fL (80-100); MEAN CORPUSCULAR HEMOGLOBIN 28.6 pg (25-34); MEAN CORPUSCULAR HGB CONC 33.4 g/dl (32-36); MEAN PLATELET VOLUME 9.8 fL (7.4-10.4); PLATELET COUNT 240 K/uL (130-400); RED BLOOD COUNT 4.02 M/uL (4.7-6.1); WHITE BLOOD COUNT 14.21 K/uL (4.8-10.8)
[2017-03-22 07:00] LABS: PROTHROMBIN TIME (PATIENT) 10.7 SECONDS (9.0-12.0)
--- NOTE | 2017-03-22 07:22 | Discharge Instructions ---
Discharge Instructions Date of Service Mar 22, 2017. Admission Reason for Admission: Right Knee Osteoarthritis Discharge Discharge Diagnosis / Problem: right total knee replacement Discharge Goals Goal(s): Decrease discomfort, Improve function, Increase independence Activity Recommendations Activity Limitations: as noted below Weightbearing Status: Right weightbearing (as tolerated) . Instructions / Follow-Up Instructions / Follow-Up ACTIVITY RECOMMENDATIONS: SELF CARE INSTRUCTIONS AFTER TOTAL KNEE REPLACEMENT A. You may need to continue a physical therapy program after discharge from the hospital. There are several options available to you. Your doctor will assist you in selecting the best one for you. 1. An out-patient facility 2 to 3 times a week for therapy or home therapy. 2. Continue working on all exercises taught to you in the hospital. Your goals should be to increase bending of your knee to 90 degrees and beyond and to fully straighten your knee. B. You may progress at your own pace from walking with a walker or crutches to a cane; then to no assistive devices. C. Make walking a part of your daily routine. Be up as much as comfortable with rest periods throughout the day. Rest with leg elevation is very important. Use the ice wrap frequently for the first 3-4 weeks. D. There are no restrictions on activities. You may ride in a car, shop, participate in drop forge operator and all social activities. E. Wear the long elastic stockings (ARVIND hose) 20 hours a day for 2 weeks after surgery. They can be removed several times a day for laundering and for a bath. F. You may shower, no tub baths until cleared by your doctor. SPECIAL CARE INSTRUCTIONS: VERY IMPORTANT TO READ AND REVIEW A. There are a few signs you need to watch for after you are home. Call [facility] if you notice any of the followin. Increased severe knee pain. Some pain is expected especially when you exercise. 2. Increased swelling in your leg or knee; pain or swelling of the calf muscle in either lower leg. 3. Any fluid drainage from the incision. 4. Shortness of breath or chest pain. B. Please call [facility] at if you have any concerns or questions about your operation or recovery. The doctor or his nurse will return your call promptly. C. You must take antibiotics before dental work, bladder, bowel or other surgery. Your doctor will provide you with a permanent care to carry describing this precaution. IMPORTANT: * REMEMBER TO TAKE ASPIRIN, 81 MG, TWICE DAILY FOR 4 WEEKS UNLESS OTHERWISE DIRECTED. THIS IS YOUR BLOOD THINNER. * HIGH RISK PATIENTS MAY BE PRESCRIBED A STRONGER BLOOD THINNER. THIS WILL BE PROVIDED AT DISCHARGE. * CALL IF INCREASED PAIN, REDNESS, DRAINAGE OR FEVER GREATER THAT 101. * WEAR ARVIND HOSE 20 HOURS PER DAY FOR 2 WEEKS. * DERMABOND Prineo- This is a mesh tape dressing that is covered with glue. It should remain in place until the incision is properly healed, usually 10-14 days. This dressing is designed to naturally slough off. You may trim the excess mesh tape as it peels off. Incision may be briefly wet in a shower. Dry immediately by blotting with a clean, dry towel. Do not bath or swim until instructed by your doctor. Do not scratch, rub, or pick at the dressing. Do not apply any topical ointments or lotions until dressing is completely removed and/or instructed by your doctor. There may be a small piece of suture material at one end of your incision. Do not pull or trim this. If it is bothersome or catching on clothing, you may cover it with a band-aid. FOLLOW UP VISIT: If appointment is not already scheduled: Please call [facility] to make a follow-up appointment for 2 weeks after your surgery at . Current Hospital Diet Patient's current hospital diet: Regular Diet Discharge Diet Recommended Diet: Regular Diet Procedures Procedures Performed: Right total knee arthroplasty utilizing Servin & Nephew journey to patient-matched total knee Orthoplast size 8 femur 7 tibia 11 poly-38 oval patella Pending Studies Studies pending at discharge: no Laboratory Results Hemoglobin A1c Test 02/27/17 11:27 Range/Units Estimated Average Glucose 120 mg/dl Hemoglobin A1c 5.8 H 4.5-5.6 % Medical Emergencies . Who to Call and When: Medical Emergencies: If at any time you feel your situation is an emergency, please call 911 immediately. . Non-Emergent Contact Non-Emergency issues call your: Primary Care Provider, Surgeon . "Provider Documentation" section prepared by Gio Coleman. . VTE Core Measure Inpt VTE Proph given/why not?: Other Anticoagulation (ASA 81mg po bid x 1 month ), T.E.Bekah Stockings, SCD's [place] Drug Monitoring Program Search Results: patient reviewed within database, no issues identified
[2017-03-22 07:24] LABS: BUN/CREATININE RATIO 15.2 (10-20); CALCIUM 8.5 mg/dl (8.5-10.1); CREATININE 1.02 mg/dl (0.60-1.40)
[2017-03-22] MEDS: D5W AND 1/2NSS + 20MEQ KCL 1,000 ML IV SCH (07:30)
[2017-03-22] MEDS: MULTIVITAMIN TAB PO SCH (08:22)
[2017-03-22] MEDS: ASPIRIN 81 MG ECTAB PO SCH ×2 (08:22→21:30)
[2017-03-22] MEDS: CeleBREX 200 MG CAP PO SCH ×2 (08:22→21:29)
[2017-03-22] MEDS: MAGNESIUM OXIDE 400 MG TAB PO SCH (08:22)
[2017-03-22] MEDS: DOCUSATE SODIUM 100 MG CAP PO SCH ×2 (08:23→21:29)
--- NOTE | 2017-03-22 13:24 | Anesthesiology Progress Note ---
Anesthesia Post Op Note Date & Time Mar 22, 2017 at 13:23 Vital Signs Pain Intensity: 0.0 Vital Signs Past 12 Hours Date Time Temp Pulse Resp B/P (MAP) Pulse Ox O2 Delivery O2 Flow Rate FiO2 03/22/17 12:00 36.7 62 18 112/74 (87) 99 Room Air 03/22/17 08:06 99 Room Air 03/22/17 08:04 36.4 60 16 120/80 (93) 99 Room Air 03/22/17 07:10 Room Air 03/22/17 04:15 109/70 (83) 03/22/17 03:13 36.5 58 14 88/47 (61) 94 Room Air 88/51 (63) Notes Mental Status: alert / awake / arousable, participated in evaluation Pt Amnestic to Procedure: Yes Nausea / Vomiting: adequately controlled Pain: adequately controlled Airway Patency, RR, SpO2: stable & adequate BP & HR: stable & adequate Hydration State: stable & adequate Neuraxial Anesthesia: sensory block resolved Anesthetic Complications: no major complications apparent
[2017-03-22] MEDS ORDERED: NURSING VERBAL MED ORDER ONE (20:45)
[2017-03-22] MEDS: SENNA 8.6 MG TAB PO SCH (21:00)
[2017-03-22] MEDS: POLYETHYLENE (MIRALAX) 17 GM PACK PO SCH (21:30)
[2017-03-22] MEDS: ATORVASTATIN 40 MG TAB PO SCH (21:30)
[2017-03-23] MEDS: OXYCODONE HCL IR 5 MG TAB (IMMEDIATE RELEASE) PO PRN ×4 (01:46→14:00)
[2017-03-23] MEDS: ACETAMINOPHEN 500 MG TAB PO SCH ×2 (05:51→14:00)
[2017-03-23 06:31] VITALS: BP 101/68; PULSE 59; TEMP 36.6; O2SAT 99
--- NOTE | 2017-03-23 07:53 | Orthopedic Progress Note ---
Orthopedic Progress Note Date of Service Mar 23, 2017. Subjective Post OP Day: 2 Reports: feeling well, Denies: complaints Objective calves soft nontender, N/V intact, incision C/D/I, A&O x3, toes mobile Date Time Temp Pulse Resp B/P (MAP) Pulse Ox O2 Delivery O2 Flow Rate FiO2 03/23/17 06:31 36.6 59 16 101/68 (79) 99 Room Air 03/22/17 23:40 36.7 60 14 96/61 (73) 97 Room Air 03/22/17 23:14 Room Air 03/22/17 16:36 36.5 60 16 114/78 (90) 99 Room Air 03/22/17 15:30 Room Air 03/22/17 12:00 36.7 62 18 112/74 (87) 99 Room Air 03/22/17 08:06 99 Room Air 03/22/17 08:04 36.4 60 16 120/80 (93) 99 Room Air Assessment & Plan Assessment: POD #2 s/p Right TKA -pt/ot -dvt proph with jey/scd/asa -plan for d/c home today Inhouse Planning Pain Management: Celebrex, Ultram, PO Tylenol, Oxy IR DVT Prophylaxis: TEDs, SCDs, ASA Discharge Planning Discharge Planning: home with oppt
[2017-03-23] MEDS ORDERED: ASPI1CHW12 PO (07:55)
[2017-03-23] MEDS ORDERED: ACET-24 PO (07:55)
[2017-03-23] MEDS ORDERED: RXC5 PO (07:56)
[2017-03-23] MEDS ORDERED: CLB200 PO (07:56)
[2017-03-23] MEDS ORDERED: SENN-61 PO (07:56)
[2017-03-23 08:00] VITALS: O2SAT 99
[2017-03-23] MEDS: ASPIRIN 81 MG ECTAB PO SCH (09:09)
[2017-03-23] MEDS: MAGNESIUM OXIDE 400 MG TAB PO SCH (09:09)
[2017-03-23] MEDS: CeleBREX 200 MG CAP PO SCH (09:09)
[2017-03-23] MEDS: POLYETHYLENE (MIRALAX) 17 GM PACK PO SCH (09:09)
[2017-03-23] MEDS: MULTIVITAMIN TAB PO SCH (09:09)
[2017-03-23] MEDS: DOCUSATE SODIUM 100 MG CAP PO SCH (09:09)
[2017-03-23 11:15] VITALS: BP 126/82; PULSE 60; TEMP 36.6; O2SAT 96
[2017-03-23 13:34] VITALS: BP 126/82; PULSE 60; TEMP 36.6; O2SAT 96
--- NOTE | 2017-03-23 18:10 | Discharge Summary ---
Orthopedic Discharge Summary Admission Date/Reason Mar 21, 2017 at 06:57 Right Knee Osteoarthritis. Discharge Date/Disposition Mar 23, 2017 Home Diagnosis Principal Diagnosis: right knee osteoarthritis Procedure(s) Performed Right total knee arthroplasty utilizing [employer] 2 patient-matched total knee size 8 femur 7 tibia 11 poly-38 oval patella Consultations NONE Medication Reconciliation New Medications: Acetaminophen (Sb Non-Aspirin Extra Stre) 500 Mg Tab 1000 MG PO Q8H for 21 Days, #126 TAB Celecoxib (Celebrex) 200 Mg Cap 200 MG PO BID, #60 CAP Oxycodone HCl (Oxycodone HCl) 5 Mg Tab 5-10 MG PO Q4H PRN for Pain, #60 TAB Senna (Senokot) 8.6 Mg Tab 17.2 MG PO HS, #30 TAB Changed Medications: Aspirin (Aspirin 81 Low Dose) 81 Mg Chw 1 TAB PO BID for 30 Days (Changed from: QAM) after 30 days, resume your once daily dose Continued Medications: Atorvastatin (Atorvastatin Calcium) 40 Mg Tab 1 TAB PO HS Cholecalciferol (Vitamin D) 1,000 Unit Tab 2000 PO QAM Coenzyme Q10 (Ubidecarenone) (Co-Enzyme Q-10) Unknown Strength Tab 200 MG PO QAM Enteral Nutrition Formula (Nutritional Supplement) Ea 6 CAP PO DAILY JUICE PLUS Fish Oil ([place]-3) 1 Ea Cap 1 CAP PO QAM, CAP Magnesium Oxide (Mag-Ox) 400 Mg Tab 400 MG PO QAM, TAB Multivitamin (Multivitamin) Tab 1 TAB PO QAM, TAB Potassium (Potassium) 99 Mg Tab 2 TAB PO QAM Admission Physical Exam As per Admitting History & Physical. Hospital Course Patient was a same day admission after undergoing a successful right TKA. he tolerated the procedure well. Post-operatively, his activity was progressed and well tolerated. Please refer to daily progress notes and PT notes for complete details. After exam on 03/23/17, patient felt to be stable for discharge home with OPPT. Patient will f/u in the office in 2 weeks for further evaluation including x-rays and incision check, sooner if having any issues or concerns. Below are pertinent labs/studies during their hospital stay: Last Vital Signs Documentation Date Time Temp Pulse Resp B/P (MAP) Pulse Ox O2 Delivery O2 Flow Rate FiO2 03/23/17 13:34 36.6 60 19 96 Room Air 03/23/17 11:15 126/82 (97) 03/21/17 12:15 2.0 Last Resulted CBC 03/22/17 06:25 Last Resulted BMP 03/22/17 06:25 Discharge Instructions ACTIVITY RECOMMENDATIONS: SELF CARE INSTRUCTIONS AFTER TOTAL KNEE REPLACEMENT A. You may need to continue a physical therapy program after discharge from the hospital. There are several options available to you. Your doctor will assist you in selecting the best one for you. 1. An out-patient facility 2 to 3 times a week for therapy or home therapy. 2. Continue working on all exercises taught to you in the hospital. Your goals should be to increase bending of your knee to 90 degrees and beyond and to fully straighten your knee. B. You may progress at your own pace from walking with a walker or crutches to a cane; then to no assistive devices. C. Make walking a part of your daily routine. Be up as much as comfortable with rest periods throughout the day. Rest with leg elevation is very important. Use the ice wrap frequently for the first 3-4 weeks. D. There are no restrictions on activities. You may ride in a car, shop, participate in car hiker and all social activities. E. Wear the long elastic stockings (ARVIND hose) 20 hours a day for 2 weeks after surgery. They can be removed several times a day for laundering and for a bath. F. You may shower, no tub baths until cleared by your doctor. SPECIAL CARE INSTRUCTIONS: VERY IMPORTANT TO READ AND REVIEW A. There are a few signs you need to watch for after you are home. Call [facility] if you notice any of the followin. Increased severe knee pain. Some pain is expected especially when you exercise. 2. Increased swelling in your leg or knee; pain or swelling of the calf muscle in either lower leg. 3. Any fluid drainage from the incision. 4. Shortness of breath or chest pain. B. Please call [facility] at if you have any concerns or questions about your operation or recovery. The doctor or his nurse will return your call promptly. C. You must take antibiotics before dental work, bladder, bowel or other surgery. Your doctor will provide you with a permanent care to carry describing this precaution. IMPORTANT: * REMEMBER TO TAKE ASPIRIN, 81 MG, TWICE DAILY FOR 4 WEEKS UNLESS OTHERWISE DIRECTED. THIS IS YOUR BLOOD THINNER. * HIGH RISK PATIENTS MAY BE PRESCRIBED A STRONGER BLOOD THINNER. THIS WILL BE PROVIDED AT DISCHARGE. * CALL IF INCREASED PAIN, REDNESS, DRAINAGE OR FEVER GREATER THAT 101. * WEAR ARVIND HOSE 20 HOURS PER DAY FOR 2 WEEKS. * DERMABOND Prineo- This is a mesh tape dressing that is covered with glue. It should remain in place until the incision is properly healed, usually 10-14 days. This dressing is designed to naturally slough off. You may trim the excess mesh tape as it peels off. Incision may be briefly wet in a shower. Dry immediately by blotting with a clean, dry towel. Do not bath or swim until instructed by your doctor. Do not scratch, rub, or pick at the dressing. Do not apply any topical ointments or lotions until dressing is completely removed and/or instructed by your doctor. There may be a small piece of suture material at one end of your incision. Do not pull or trim this. If it is bothersome or catching on clothing, you may cover it with a band-aid. FOLLOW UP VISIT: If appointment is not already scheduled: Please call [facility] to make a follow-up appointment for 2 weeks after your surgery at .
== END 2017-03-23 14:45 | disposition home or self-care (01) | DRG 470 ==
LOC: C.ACU 05:18 → C.3E 06:57 → ENRESERV 09:44
PROVIDERS: ADMIT Orthopaedic Surgery; ATTEND Orthopaedic Surgery
PROC: 0SRC0J9 Replacement of Right Knee Joint with Synthetic Substitute, Cemented, Open Approach (ICD-10-PCS; principal; 2017-03-21 07:15)
DX: M17.11 Unilateral primary osteoarthritis, right knee (principal); I25.10 Atherosclerotic heart disease of native coronary artery without angina pectoris; E78.5 Hyperlipidemia, unspecified; E66.9 Obesity, unspecified; Z68.32 Body mass index [BMI] 32.0-32.9, adult; Z96.652 Presence of left artificial knee joint; Z96.611 Presence of right artificial shoulder joint; Z96.612 Presence of left artificial shoulder joint; Z95.2 Presence of prosthetic heart valve; Z79.82 Long term (current) use of aspirin; Z79.899 Other long term (current) drug therapy